=== PATIENT | male | born 1945 | race Caucasian/White ===

== ENCOUNTER → 2017-12-28 | Outpatient (REF) | payer MEDICARE, BC ==
[2017-12-28 16:43] LABS: ANION GAP 4 MEQ/L (8-16); BLOOD UREA NITROGEN 20 MG/DL (7-18); CALCIUM LEVEL 9.1 MG/DL (8.8-10.2); CARBON DIOXIDE LEVEL 30 MEQ/L (21-32); CHLORIDE LEVEL 108 MEQ/L (98-107); CHOLESTEROL LEVEL 147 MG/DL (<200); CREATININE FOR GFR 1.35 MG/DL (0.70-1.30); GLOMERULAR FILTRATION RATE 55.3 (>42); GLUCOSE, FASTING 77 MG/DL (70-100); HDL CHOLESTEROL 62 MG/DL (>40); LDL CHOLESTEROL 74.8 MG/DL (<100); NON-HDL-C 85 MG/DL; POTASSIUM SERUM 5.1 MEQ/L (3.5-5.1); SODIUM LEVEL 142 MEQ/L (136-145); TRIGLYCERIDES LEVEL 51 MG/DL (<150)
== END ==
LOC: M SFHCCLAY 12:36
DX: I10 Essential (primary) hypertension (principal); E78.00 Pure hypercholesterolemia, unspecified
CPT/HCPCS: 80061

== ENCOUNTER → 2018-11-29 | Outpatient (REF) | payer MEDICARE, BC ==
[2018-11-30 12:26] LABS: HEMATOCRIT 55.6 % (42.0-52.0); MEAN CORPUSCULAR HEMOGLOBIN 29.3 pg (27.0-33.0); MEAN CORPUSCULAR HGB CONC 32.4 g/dl (32.0-36.5); MEAN CORPUSCULAR VOLUME 90.6 fl (80.0-96.0); PLATELET COUNT, AUTOMATED 207 10^3/uL (150-450); RED BLOOD COUNT 6.14 10^6/uL (4.30-6.10); WHITE BLOOD COUNT 9.3 10^3/uL (4.0-10.0)
[2018-11-30 12:42] LABS: ALBUMIN 3.8 GM/DL (3.2-5.2); BILIRUBIN,TOTAL 0.7 MG/DL (0.2-1.0); CALCIUM LEVEL 9.1 MG/DL (8.8-10.2); CREATININE FOR GFR 1.36 MG/DL (0.70-1.30); FREE T4 0.95 NG/DL (0.76-1.46); GLOMERULAR FILTRATION RATE 54.7 (>42); POTASSIUM SERUM 4.9 MEQ/L (3.5-5.1); THYROID STIMULATING HORMONE 1.16 uIU/ML (0.358-3.740); TOTAL PROTEIN 7.2 GM/DL (6.4-8.2)
== END ==
LOC: M SFHCCLAY 13:58
PROVIDERS: ATTEND Family Medicine
DX: R11.0 Nausea (principal); R53.83 Other fatigue
CPT/HCPCS: 80053; 82607; 84439; 84443; 85027; G0463

== ENCOUNTER → 2018-12-06 | Outpatient (CLI) | payer MEDICARE, BC ==
--- NOTE | 2018-12-06 10:44 | REP ---
Right upper quadrant sonography: History: Nausea after eating. Comparison study: No comparison study. Findings: Scanning through the right upper quadrant of the abdomen demonstrates a normal sized, thin-walled gallbladder without evidence of stone or polyp. Common bile duct is normal measuring 0.3 cm in greatest diameter. No focal liver lesion is seen. Liver size is normal. No pancreatic abnormality is observed. No right renal abnormality is seen. There is no evidence of ascites. The right kidney measures 9.8 x 4.9 x 4.4 cm. Impression: Negative right upper quadrant sonography. Electronically Signed by Keron De La Curz MD 12/06/2018 10:36 A
== END ==
LOC: M RAD 09:05
PROVIDERS: ATTEND Family Medicine
DX: R11.0 Nausea (principal)

== ENCOUNTER → 2018-12-08 | Outpatient (CLI) | payer MEDICARE, BC ==
[~2018-12-08] MED LIST: GASTROGRAFIN SOLUTION 30ML (Q9963) As Ordered ONE; ISOVUE-370 76% 100ML VIAL (Q9967) As Ordered ONE
--- NOTE | 2018-12-08 14:01 | REP ---
REASON: Postprandial nausea. No priors for comparison. CONTRAST: 100 mL Isovue 370. The lung bases are clear. The liver, gallbladder, spleen, pancreas, adrenal glands, kidneys are within normal limits. In the interpolar region of the left kidney anteriorly, there is a 1.1 cm sized renal cyst. The abdominal aorta and paraaortic regions are within normal limits. There is no intra-abdominal mass or adenopathy. The bowel loops and their mesenteries are within normal limits. There is no free fluid or free air. There is descending colon diverticulosis. CT PELVIS: There is sigmoid colon diverticulosis. The prostate gland appears enlarged. There is no mass or adenopathy. There is no free fluid or free air. Bone window technique throughout the exam shows spinal degenerative changes. IMPRESSION: There is no evidence of acute intra-abdominal or intrapelvic disease. There is a simple left renal cyst. Electronically Signed by Remigio Pelayo DO 12/08/2018 03:03 P
== END ==
LOC: M RAD 11:30
PROVIDERS: ATTEND Family Medicine
DX: N28.1 Cyst of kidney, acquired (principal)
CPT/HCPCS: 74177; Q9963; Q9967

== ENCOUNTER → 2018-12-30 | Outpatient (REF) | payer MEDICARE, BC | LOC: M SFHCCLAY 12:26 | PROVIDERS: ATTEND Family Medicine | DX: R23.2 Flushing (principal) ==

== ENCOUNTER → 2019-01-03 | Outpatient (REF) | payer MEDICARE, BC | LOC: M SFHCCLAY 13:19 | PROVIDERS: ATTEND Family Medicine | DX: E78.00 Pure hypercholesterolemia, unspecified (principal) ==

== ENCOUNTER → 2019-11-23 | Outpatient (REF) | payer MEDICARE, BC ==
[2019-11-23 16:46] LABS: HEMATOCRIT 55.2 % (42.0-52.0); HEMOGLOBIN 18.3 g/dl (13.5-17.5); MEAN CORPUSCULAR HEMOGLOBIN 29.8 pg (27.0-33.0); MEAN CORPUSCULAR HGB CONC 33.2 g/dl (32.0-36.5); MEAN CORPUSCULAR VOLUME 89.8 fl (80.0-96.0); PLATELET COUNT, AUTOMATED 228 10^3/uL (150-450); RED BLOOD COUNT 6.15 10^6/uL (4.30-6.10); WHITE BLOOD COUNT 5.9 10^3/uL (4.0-10.0)
[2019-11-23 16:55] LABS: ALBUMIN 3.7 GM/DL (3.2-5.2); BILIRUBIN,TOTAL 0.6 MG/DL (0.2-1.0); CREATININE FOR GFR 1.52 MG/DL (0.70-1.30); FREE T4 0.95 NG/DL (0.76-1.46); POTASSIUM SERUM 5.2 MEQ/L (3.5-5.1); THYROID STIMULATING HORMONE 1.48 uIU/ML (0.358-3.740); TOTAL PROTEIN 7.1 GM/DL (6.4-8.2)
[2019-11-23 16:58] LABS: TOTAL 25(OH) VITAMIN D 32.5 NG/ML (30.0-100.0)
[2019-11-23 17:15] LABS: FOLATE 14.5 NG/ML (>5.4)
[2019-11-30 06:55] LABS: TESTOSTERONE FREE (DIRECT) 6.3 pg/mL (6.6-18.1); VITAMIN B6,PYRIDOXAL PHOSPHATE 7.9 ug/L (5.3-46.7)
== END ==
LOC: M SFHCCLAY 11:02
PROVIDERS: ATTEND Family Medicine
DX: I48.0 Paroxysmal atrial fibrillation (principal); I10 Essential (primary) hypertension; R23.2 Flushing; E55.9 Vitamin D deficiency, unspecified

== ENCOUNTER → 2020-03-11 | Outpatient (CLI) | payer MEDICARE, BC ==
--- NOTE | 2020-03-13 14:30 | SLEEPCENT ---
DATE: 03/11/2020 ORDERED BY: Dr. Cora Garza Nocturnal polysomnography was performed for evaluation of sleep physiology in this patient with a history of excessive somnolence and nonrestorative sleep, who has comorbidities of atrial fibrillation. There was 7 hours and 50 minutes of data reviewed. There was 111 minutes of sleep identified. Sleep latency was quite prolonged at 163 minutes. REM latency, however, was short at 36.5 minutes. Sleep architecture was fragmented with poor sleep progression. Overall sleep efficiency was only 24.1%. The electrocardiogram showed atrial fibrillation with a ventricular response rate of 55 beats per minute. EEG showed reasonably normal waveforms for wake and sleep. There were 43 respiratory events identified of 10 seconds in duration for an apnea-hypopnea index of 23.1. The events were obstructive, not exclusive to sleep stage, more frequent but not exclusive to the supine posture. Arousals from respiratory events occurred 22.6 times per hour, and oxygen desaturations were seen into the 80s. There was some limb activity as well. Limb movement arousal index was 9.7. There were only two trains of 30 events. IMPRESSION: Obstructive sleep apnea syndrome (G47.33). Apnea-hypopnea index 23.1. RECOMMENDATION: The patient should be encouraged to return to the sleep disorder center for pressure therapy. In the interim, alcohol and sedative avoidance should be practiced and caution exercised during the operation of motor vehicles. MTDD
== END ==
LOC: M SLEEP 20:00
PROVIDERS: ATTEND Nurse Practitioner Family
DX: R06.83 Snoring (principal)

== ENCOUNTER → 2021-01-07 | Outpatient (REF) | payer MEDICARE, BC | LOC: M SFHCCLAY 14:59 | PROVIDERS: ATTEND Family Medicine | DX: G47.33 Obstructive sleep apnea (adult) (pediatric) (principal); I48.0 Paroxysmal atrial fibrillation ==

== ENCOUNTER → 2021-01-09 | Outpatient (REF) | payer MEDICARE, BC ==
[2021-01-09 16:20] LABS: BASO # 0.1 10^3/uL (0.0-0.2); BASO % 0.7 % (0.0-1.0); EOS # 0.2 10^3/uL (0.0-0.5); EOS % 2.7 % (0.0-3.0); HEMATOCRIT 53.1 % (42.0-52.0); HEMOGLOBIN 17.3 g/dl (13.5-17.5); LYMPH % 28.2 % (24.0-44.0); MEAN CORPUSCULAR HEMOGLOBIN 29.8 pg (27.0-33.0); MEAN CORPUSCULAR HGB CONC 32.6 g/dl (32.0-36.5); MEAN CORPUSCULAR VOLUME 91.4 fl (80.0-96.0); MONO # 0.6 10^3/uL (0.0-0.8); MONO % 8.7 % (2.0-8.0); NEUTROPHILS # 4.1 10^3/uL (1.5-8.5); NEUTROPHILS % 59.4 % (36.0-66.0); PLATELET COUNT, AUTOMATED 202 10^3/uL (150-450); RED BLOOD COUNT 5.81 10^6/uL (4.30-6.10); WHITE BLOOD COUNT 6.9 10^3/uL (4.0-10.0)
[2021-01-09 17:40] LABS: ALBUMIN 3.8 GM/DL (3.2-5.2); BILIRUBIN,TOTAL 1.1 MG/DL (0.2-1.0); CALCIUM LEVEL 9.2 MG/DL (8.8-10.2); CREATININE FOR GFR 1.96 MG/DL (0.70-1.30); GLOMERULAR FILTRATION RATE 35.7 (>42); THYROID STIMULATING HORMONE 1.29 uIU/ML (0.358-3.740); TOTAL PROTEIN 6.7 GM/DL (6.4-8.2)
== END ==
LOC: M SFHCCLAY 12:01
PROVIDERS: ATTEND Family Medicine
DX: R10.31 Right lower quadrant pain (principal); G47.33 Obstructive sleep apnea (adult) (pediatric); I48.0 Paroxysmal atrial fibrillation
CPT/HCPCS: 80053; 83690; 84443; 85025; G0463

== ENCOUNTER → 2021-03-10 | Outpatient (CLI) | payer MEDICARE, BC ==
[~2021-03-10] MED LIST changes: +DRON400T PO; +ELIQ5TAB PO; +FAMO20TA5; -GASTROGRAFIN SOLUTION 30ML (Q9963) As Ordered ONE; -ISOVUE-370 76% 100ML VIAL (Q9967) As Ordered ONE; +MACR100C43 PO; +OXYB5TAB10 PO; +PYRI1TAB5 PO; +SULF400T14 PO; +TAMS1CAP17 PO
== END ==
LOC: M CLY 09:47
PROVIDERS: ATTEND Nurse Practitioner Family
DX: Z01.818 Encounter for other preprocedural examination (principal); N13.2 Hydronephrosis with renal and ureteral calculous obstruction; I48.0 Paroxysmal atrial fibrillation; I10 Essential (primary) hypertension; G47.33 Obstructive sleep apnea (adult) (pediatric)

== ENCOUNTER → 2021-03-10 | Outpatient (REF) | payer MEDICARE, BC ==
[2021-03-10 11:38] LABS: HEMATOCRIT 47.8 % (42.0-52.0); HEMOGLOBIN 15.8 g/dl (13.5-17.5); MEAN CORPUSCULAR HEMOGLOBIN 30.2 pg (27.0-33.0); MEAN CORPUSCULAR HGB CONC 33.1 g/dl (32.0-36.5); MEAN CORPUSCULAR VOLUME 91.2 fl (80.0-96.0); PLATELET COUNT, AUTOMATED 176 10^3/uL (150-450); RED BLOOD COUNT 5.24 10^6/uL (4.30-6.10); WHITE BLOOD COUNT 5.4 10^3/uL (4.0-10.0)
[2021-03-10 11:49] LABS: INR 1.08; PROTHROMBIN TIME 14.4 SECONDS (12.7-14.5)
[2021-03-10 11:50] LABS: PARTIAL THROMBOPLASTIN TIME 37.9 SECONDS (25.9-37.0)
[2021-03-10 12:05] LABS: CALCIUM LEVEL 8.6 MG/DL (8.8-10.2); CREATININE FOR GFR 1.49 MG/DL (0.70-1.30); GLOMERULAR FILTRATION RATE 48.9 (>42)
[2021-03-10 15:13] LABS: APPEARANCE, URINE CLEAR (CLEAR); BILIRUBIN, URINE AUTO NEGATIVE (NEGATIVE); BLOOD, URINE BLOOD NEGATIVE (NEGATIVE); COLOR, URINE YELLOW (YELLOW); GLUCOSE, URINE (UA) AUTO NEGATIVE (NEGATIVE); KETONE, URINE AUTO NEGATIVE (NEGATIVE); LEUKOCYTE ESTERASE, URINE AUTO NEGATIVE (NEGATIVE); NITRITE, URINE AUTO NEGATIVE (NEGATIVE); PROTEIN, URINE AUTO NEGATIVE (NEGATIVE); SPECIFIC GRAVITY URINE AUTO 1.011 (1.002-1.035); UROBILINOGEN, URINE AUTO 0.2 mg/dL (0.0-2.0)
[2021-03-10 15:14] LABS: BACTERIA, URINE AUTO NEGATIVE (NEGATIVE); RBC, URINE AUTO 0 /HPF (0-3); SQUAMOUS EPITHELIAL CELL UR AU 0 /HPF (0-6); WBC, URINE AUTO 0 /HPF (0-3)
== END ==
LOC: M SFHCCLAY 09:23
PROVIDERS: ATTEND Nurse Practitioner Family
DX: Z01.818 Encounter for other preprocedural examination (principal); N13.2 Hydronephrosis with renal and ureteral calculous obstruction; Z79.01 Long term (current) use of anticoagulants
CPT/HCPCS: 71046; 80048; 81001; 85027; 85610; 85730; 87086; G0463

== ENCOUNTER → 2021-03-26 | Outpatient (CLI) | payer MEDICARE, BC | LOC: M LABSMTC 09:37 | PROVIDERS: ATTEND Anesthesiology | DX: Z11.52 Encounter for screening for COVID-19 (principal) ==

== ENCOUNTER 2021-03-27 13:51 | Day surgery (SDC) | payer MEDICARE, BC ==
[~2021-03-27] VITALS: Ht 172.7 cm; Wt 68.5 kg
[~2021-03-27 13:51] MED LIST changes: +LIDOCAINE 1% MDV 20ML VIAL SQ PRN; +LR 1,000 ML IV ONE; -MACR100C43 PO; -OXYB5TAB10 PO; -PYRI1TAB5 PO; +ceFAZolin SOD 1 GM in D5W MINI-BAG PLUS 50 ML IV ONE
[2021-03-27] MEDS ORDERED: fentaNYL 100 MCG/2 ML INJECTION (J3010) As Ordered ONE (15:14)
[2021-03-27] MEDS ORDERED: ONDANSETRON 4MG/2ML VIAL As Ordered ONE (15:14)
[2021-03-27] MEDS ORDERED: propofoL 200 MG/20 ML VIAL As Ordered ONE (15:14)
[2021-03-27] MEDS ORDERED: dexameTHASONE 4 MG/ML 1ML VIAL (J1100 PER 1MG) As Ordered ONE (15:14)
[2021-03-27] MEDS ORDERED: KETOROLAC 60MG 2ML VIAL As Ordered ONE (15:14)
[2021-03-27] MEDS ORDERED: LIDOCAINE 2% 100MG/5ML SDV (FOR ANES.) As Ordered ONE (15:14)
[2021-03-27] MEDS ORDERED: MIDAZOLAM INJ 2MG/2ML VIAL (J2250 PER 1MG) As Ordered ONE (15:14)
[2021-03-27] MEDS ORDERED: LIDOCAINE 5% OINT 30GM TUBE As Ordered ONE (15:21)
[2021-03-27] MEDS ORDERED: CONRAY-60 60% 50ML VIAL (Q9961) As Ordered ONE (15:44)
[2021-03-27] MEDS ORDERED: OXYB5TAB10 PO (15:57)
[2021-03-27] MEDS ORDERED: PYRI1TAB5 PO (15:57)
[2021-03-27] MEDS ORDERED: MACR100C43 PO (15:57)
--- NOTE | 2021-03-27 15:59 | ROOPDOC ---
[facility] Report Of Operation Report of Operation DATE OF PROCEDURE: 03/27/21 PREPROCEDURE DIAGNOSES: [right ureteral stones]. POSTPROCEDURE DIAGNOSES: [same]. PROCEDURE PERFORMED: [cysto fluoro rigid uscope laser lith basket stone extraction stent placement - right side]. SURGEON: [Marcel Craig], INTERVENTIONAL NURSE: [none], ANESTHESIA: [general]. ESTIMATED BLOOD LOSS: Approximately [2] mL. COMPLICATIONS: [none]. REMARKS: [75yo wm. Right ureteral stones by ct. Ureteroscopy with laser lithotripsy arranged. Risks discussed such as infection, pain, bleeding, scarring, injury to gu tract, failure of surgery, need for more surgery and others. Informed consent obtained.]. FINDINGS: SPECIMENS REMOVED: [fragment of stone] PROCEDURE NOTE: . DESCRIPTION OF PROCEDURE: [ met with pt in preop area and surgery again discussed, right side, pt wished to proceed pt brought to OR room, supine position, well padded, general anesthesia secured, time out performed, surgery done under iv antibiotic, then dorsal litho position, well padded, prep'd and draped in sterile fashion cysto performed with rigid scope, no stone in bladder, wire passed up right ureter under fluoro rigid ureteroscopy performed, several stones in distal ureter noted, laser lithotripsy fragmented stones well, basket for stone extraction, all significant fragments removed, passed uscope to just below renal pelvis right 6fr multilength stent placed using wire and cystoscope, proper positioning confirmed bladder emptied and cystoscope removed pt tolerated all well home, pain med already, Pyridium, oxybutynin and Macrobid cysto stent removal in office spoke with Farhana after surgery]. HALIMA CRAIG MD Mar 27, 2021 15:59
--- NOTE | 2021-03-27 16:38 | REP ---
INDICATION: RIGHT STENT PLACEMENT. COMPARISON: None. TECHNIQUE: Single radiograph of the abdomen and pelvis FINDINGS: Single radiograph demonstrates ureteral guidewire extending from the bladder into the right renal pelvis. Total fluoroscopic time 4 seconds. IMPRESSION: Guidewire in the right ureter extending to the right renal pelvis. <Electronically signed by Jimmy Cummings > 03/27/21 [id number]
[2021-03-27] MEDS ORDERED: PERCOCET 5MG/325MG TAB PO PRN (17:45)
[2021-03-27] MEDS ORDERED: MEPERIDINE INJ 25 MG/ML VIAL (J2175) IV PRN (17:45)
[2021-03-27] MEDS ORDERED: LR 1,000 ML IV SCH ×2 (17:45→17:50)
[2021-03-27] MEDS ORDERED: fentaNYL 100 MCG/2 ML INJECTION (J3010) IV PRN (17:45)
[2021-03-27] MEDS ORDERED: ONDANSETRON 4MG/2ML VIAL IV PRN (17:45)
[2021-03-27 18:48] VITALS: BP 147/74
[2021-04-03 12:08] LABS: Ca Ox Monohydrate 100 % (.); Size 2x2 mm (.)
== END 2021-03-27 18:52 | disposition home or self-care (01) ==
LOC: M SDC 13:51
PROVIDERS: ATTEND Urology
DX: N20.0 Calculus of kidney (principal); I48.91 Unspecified atrial fibrillation; G47.33 Obstructive sleep apnea (adult) (pediatric); Z79.01 Long term (current) use of anticoagulants; N40.0 Benign prostatic hyperplasia without lower urinary tract symptoms; Z79.899 Other long term (current) drug therapy
CPT/HCPCS: 52356; 74420; 82365; 88300; C1769; C1894; J0690; J1100; J1885; J2250; J2405; J3010; Q9961

== ENCOUNTER → 2021-12-23 | Outpatient (REF) | payer MEDICARE, BC ==
[~2021-12-23] MED LIST changes: -LIDOCAINE 1% MDV 20ML VIAL SQ PRN; -LR 1,000 ML IV ONE; +MACR100C43 PO; +OXYB5TAB10 PO; +PYRI1TAB5 PO; -ceFAZolin SOD 1 GM in D5W MINI-BAG PLUS 50 ML IV ONE
[2021-12-23 16:51] LABS: HEMATOCRIT 50.8 % (42.0-52.0); HEMOGLOBIN 16.6 g/dl (13.5-17.5); MEAN CORPUSCULAR HEMOGLOBIN 29.8 pg (27.0-33.0); MEAN CORPUSCULAR HGB CONC 32.7 g/dl (32.0-36.5); MEAN CORPUSCULAR VOLUME 91.2 fl (80.0-96.0); PLATELET COUNT, AUTOMATED 212 10^3/uL (150-450); RED BLOOD COUNT 5.57 10^6/uL (4.30-6.10); WHITE BLOOD COUNT 6.1 10^3/uL (4.0-10.0)
[2021-12-23 17:23] LABS: ALBUMIN 3.6 GM/DL (3.2-5.2); BILIRUBIN,TOTAL 0.7 MG/DL (0.2-1.0); CHOLESTEROL RISK RATIO 2.81 (<5); CREATININE FOR GFR 1.62 MG/DL (0.70-1.30); GLOMERULAR FILTRATION RATE 44.3 (>42); POTASSIUM SERUM 5.7 MEQ/L (3.5-5.1); TOTAL PROTEIN 6.6 GM/DL (6.4-8.2)
[2021-12-23 17:36] LABS: PTH INTACT 63.3 PG/ML (18.5-88.0); TOTAL 25(OH) VITAMIN D 47.7 NG/ML (30.0-100.0)
== END ==
LOC: M SFHCCLAY 11:49
PROVIDERS: ATTEND Family Medicine
DX: G47.33 Obstructive sleep apnea (adult) (pediatric) (principal); N20.0 Calculus of kidney; Z12.5 Encounter for screening for malignant neoplasm of prostate; Z79.899 Other long term (current) drug therapy

== ENCOUNTER → 2022-01-30 | Outpatient (REF) | payer MEDICARE, BC ==
[2022-01-30 18:10] LABS: ALBUMIN 3.4 GM/DL (3.2-5.2); CALCIUM LEVEL 9.1 MG/DL (8.8-10.2); CREATININE FOR GFR 1.61 MG/DL (0.70-1.30); GLOMERULAR FILTRATION RATE 44.6 (>42); POTASSIUM SERUM 5.5 MEQ/L (3.5-5.1)
[2022-02-03 14:08] LABS: PSA % FREE 21.3 % (.); PSA FREE 1.34 ng/mL; PSA TOTAL 6.3 ng/mL (0.0-4.0)
== END ==
LOC: M SFHCCLAY 11:05
PROVIDERS: ATTEND Family Medicine
DX: N20.0 Calculus of kidney (principal); Z12.5 Encounter for screening for malignant neoplasm of prostate; R97.20 Elevated prostate specific antigen [PSA]

== ENCOUNTER → 2023-01-15 | Outpatient (REF) | payer MEDICARE, BC ==
[2023-01-15 17:55] LABS: HEMATOCRIT 49.5 % (42.0-52.0); HEMOGLOBIN 16.1 g/dl (13.5-17.5); MEAN CORPUSCULAR HEMOGLOBIN 28.9 pg (27.0-33.0); MEAN CORPUSCULAR HGB CONC 32.5 g/dl (32.0-36.5); MEAN CORPUSCULAR VOLUME 88.9 fl (80.0-96.0); PLATELET COUNT, AUTOMATED 261 10^3/uL (150-450); RED BLOOD COUNT 5.57 10^6/uL (4.30-6.10); WHITE BLOOD COUNT 6.6 10^3/uL (4.0-10.0)
[2023-01-15 18:05] LABS: CALCIUM LEVEL 8.9 MG/DL (8.3-10.6); CREATININE FOR GFR 1.4 MG/DL (0.70-1.30); GLOMERULAR FILTRATION RATE 52.3 (>42); POTASSIUM SERUM 5.1 MMOL/L (3.5-5.1)
[2023-01-15 18:08] LABS: FREE T4 1.11 NG/DL (0.89-1.76)
[2023-01-15 18:31] LABS: THYROID STIMULATING HORMONE 1.197 uIU/ML (0.55-4.78)
== END ==
LOC: M SFHCCLAY 14:29
PROVIDERS: ATTEND Family Medicine
DX: R53.82 Chronic fatigue, unspecified (principal); G47.33 Obstructive sleep apnea (adult) (pediatric); N18.32 Chronic kidney disease, stage 3b

== ENCOUNTER → 2024-01-06 | Outpatient (REF) | payer MEDICARE, BC ==
[~2024-01-06] MED LIST changes: -OXYB5TAB10 PO; +OXYB5TAB14 PO
[2024-01-06 12:08] LABS: HEMATOCRIT 42.6 % (42.0-52.0); HEMOGLOBIN 13.8 g/dl (13.5-17.5); MEAN CORPUSCULAR HEMOGLOBIN 28.8 pg (27.0-33.0); MEAN CORPUSCULAR HGB CONC 32.4 g/dl (32.0-36.5); MEAN CORPUSCULAR VOLUME 88.8 fl (80.0-96.0); PLATELET COUNT, AUTOMATED 358 10^3/uL (150-450); WHITE BLOOD COUNT 9.2 10^3/uL (4.0-10.0)
[2024-01-06 12:36] LABS: PSA SCREENING 3.23 NG/ML (< 4.00)
[2024-01-06 12:41] LABS: ALBUMIN 2.7 G/DL (3.2-5.2); BILIRUBIN,TOTAL 0.8 MG/DL (0.3-1.2); CALCIUM LEVEL 8.8 MG/DL (8.3-10.6); CHOLESTEROL RISK RATIO 4.05 (<5); CREATININE FOR GFR 1.44 MG/DL (0.70-1.30); GLOMERULAR FILTRATION RATE 50.5 (>42); HDL CHOLESTEROL 43.6 MG/DL (>40); LDL CHOLESTEROL 121.4 MG/DL (<100); NON-HDL-C 133.4 MG/DL; POTASSIUM SERUM 5.4 MMOL/L (3.5-5.1); TOTAL PROTEIN 6.1 G/DL (5.7-8.2)
== END ==
LOC: M SFHCCLAY 09:47
PROVIDERS: ATTEND Family Medicine
DX: G47.33 Obstructive sleep apnea (adult) (pediatric) (principal); N20.0 Calculus of kidney; E83.51 Hypocalcemia; Z12.5 Encounter for screening for malignant neoplasm of prostate; R53.82 Chronic fatigue, unspecified; N18.32 Chronic kidney disease, stage 3b
CPT/HCPCS: 80053; 80061; 85027; G0103

== ENCOUNTER → 2024-01-19 | Outpatient (REF) | payer MEDICARE, BC ==
[2024-01-19 19:15] LABS: THYROID STIMULATING HORMONE 1.074 uIU/ML (0.55-4.78)
[2024-01-19 19:16] LABS: FREE T4 1.05 NG/DL (0.89-1.76)
== END ==
LOC: M SFHCCLAY 11:32
PROVIDERS: ATTEND Family Medicine
DX: I10 Essential (primary) hypertension (principal); I48.0 Paroxysmal atrial fibrillation; M79.10 Myalgia, unspecified site; R53.82 Chronic fatigue, unspecified; E83.51 Hypocalcemia

== ENCOUNTER → 2025-01-12 | Outpatient (REF) | payer MEDICARE, BC ==
[2025-01-12 17:17] LABS: ALT/SGPT 12.0 U/L (7.0-40); AST/SGOT 14.0 U/L (<34); CALCIUM LEVEL 8.9 MG/DL (8.3-10.6); CARBON DIOXIDE LEVEL 29.0 MMOL/L (20-31); CHLORIDE LEVEL 107.0 MMOL/L (98-107); CHOLESTEROL LEVEL 167.0 MG/DL (<200); CHOLESTEROL RISK RATIO 2.66 (<5); CREATININE FOR GFR 1.65 MG/DL (0.70-1.30); GLOMERULAR FILTRATION RATE 42.0 (>42); IRON (FE) 67.0 UG/DL (65-175); LDL CHOLESTEROL 94.7 MG/DL (<100); NON-HDL-C 104.3 MG/DL; PERCENT SATURATION 22.1 % (19.7-50.0); POTASSIUM SERUM 5.7 MMOL/L (3.5-5.1); PSA SCREENING 2.53 NG/ML (< 4.00); SODIUM LEVEL 144.0 MMOL/L (136-145); TRIGLYCERIDES LEVEL 48.0 MG/DL (<150)
[2025-01-12 17:34] LABS: ESTIMATED AVERAGE GLUCOSE 103.0 MG/DL (60-110)
[2025-01-12 17:59] LABS: PLATELET COUNT, AUTOMATED 207 10^3/uL (150-450)
== END ==
LOC: M SFHCCLAY 10:17
PROVIDERS: ATTEND Physician Assistant
DX: Z00.00 Encounter for general adult medical examination without abnormal findings (principal); I12.9 Hypertensive chronic kidney disease with stage 1 through stage 4 chronic kidney disease, or unspecified chronic kidney disease; I48.0 Paroxysmal atrial fibrillation; Z12.5 Encounter for screening for malignant neoplasm of prostate; E61.1 Iron deficiency
CPT/HCPCS: 80053; 80061; 82728; 83036; 83550; 85027; G0103

== ENCOUNTER → 2025-01-16 | Outpatient (REF) | payer MEDICARE, BC ==
[2025-01-16 18:14] LABS: CALCIUM LEVEL 8.7 MG/DL (8.3-10.6); CARBON DIOXIDE LEVEL 30.0 MMOL/L (20-31); CHLORIDE LEVEL 106.0 MMOL/L (98-107); CREATININE FOR GFR 1.6 MG/DL (0.70-1.30); GLOMERULAR FILTRATION RATE 43.6 (>42); POTASSIUM SERUM 5.1 MMOL/L (3.5-5.1); SODIUM LEVEL 144.0 MMOL/L (136-145)
== END ==
LOC: M SFHCCLAY 13:48
PROVIDERS: ATTEND Physician Assistant
DX: E87.5 Hyperkalemia (principal)

== ENCOUNTER → 2025-01-31 | Outpatient (CLI) | payer MEDICARE, BC | LOC: M SOG 06:56 | PROVIDERS: ATTEND Orthopaedic Surgery | DX: M48.061 Spinal stenosis, lumbar region without neurogenic claudication (principal); M47.816 Spondylosis without myelopathy or radiculopathy, lumbar region; M43.16 Spondylolisthesis, lumbar region; M41.86 Other forms of scoliosis, lumbar region; M16.11 Unilateral primary osteoarthritis, right hip ==